=== PATIENT | female | born 2005 | race Caucasian/White ===

== ENCOUNTER 2023-11-13 20:44 | Emergency (ER) | payer MEDICAID, SELFPAY ==
[2023-11-13 20:46] VITALS: BP 130/73; PULSE 127; RESP 14; TEMP 36.7; O2SAT 97; BMI 17.7
--- NOTE | 2023-11-13 22:14 | PC.NURSE ---
pt informed we needed to swab her for flu/covid she states she has already been tested and has isolated herself and doesnt want it done. Also told we need a UA and she states she is dehydrated and cannot urinate.
--- NOTE | 2023-11-13 22:19 | ECG_ITS ---
APPROVED REPORT Exam: Resting ECG HR:115 bpm ECG Measurements Heart Rate 115 AXES AK 117 P 86 QRSd 77 QRS 92 QT 342 T -30 QTc 410 Conclusion SINUS TACHYCARDIA WITH SHORT AK INTERVAL RIGHT ATRIAL ENLARGEMENT [0.3mV P-WAVE] BORDERLINE RIGHT AXIS DEVIATION [QRS AXIS > 90] POSSIBLE RIGHT VENTRICULAR CONDUCTION DELAY [RSR (QR) IN V1/V2] MODERATE T-WAVE ABNORMALITY, CONSIDER ANTERIOR ISCHEMIA [-0.1+ mV T-WAVE IN V3/V4] MODERATE T-WAVE ABNORMALITY, CONSIDER INFERIOR ISCHEMIA [-0.1+ mV T-WAVE IN II/aVF] ABNORMAL ECG UNCONFIRMED REPORT Electronically signed by : Stew Shukla MD 11/14/2023 09:00:14
[2023-11-13 22:24] LABS: Basophils # 0.1 K/mm3 (0-0.2); Basophils % 0.5 % (0.1-2.0); Eosinophils # 0.1 K/mm3 (0.0-0.4); Eosinophils % 0.6 % (0.1-12.0); Hematocrit 43.2 % (37.0-47.0); Hemoglobin 15.1 g/dL (12.2-16.2); Lymphocytes # 2.2 K/mm3 (0.7-4.5); Lymphocytes % 23.7 % (10-50); Mean Corpuscular Hemoglobin 32.5 pg (27.0-31.2); Mean Corpuscular Volume 92.7 fl (81-99); Mean Platelet Volume 7.9 fl (7.4-10.4); Monocytes # 0.6 K/mm3 (0.1-1.0); Monocytes % 6.3 % (1.7-9.3); Neutrophils # 6.3 K/mm3 (1.8-7.8); Neutrophils % 68.7 % (37.0-80.0); Platelet Count 294 K/mm3 (142-424); Red Blood Count 4.66 M/mm3 (4.20-5.40); Red Cell Distribution Width 12.6 % (11.5-17.5); White Blood Count 9.2 K/mm3 (4.5-13.0)
[2023-11-13 22:26] LABS: Chloride 102 mmol/L (98-107); Potassium 3.8 mmoL/L (3.5-5.1); Sodium 137 mmol/L (136-145)
[2023-11-13 22:28] LABS: Alanine Aminotransferase 28 U/L (12-78); Alkaline Phosphatase 67 U/L (38-126); Aspartate Amino Transferase 55 U/L (14-36); Bilirubin,Total 0.7 mg/dl (0.2-1.3); Blood Urea Nitrogen 17 mg/dl (7-17); Creatinine Clearance Estimated 77 mL/min (50-200); Estimated Glomerular Filt Rate 71 ml/min (>60); GFR (African American) 86 ML/MIN (>60)
[2023-11-13 22:29] LABS: Albumin Level 5.2 g/dl (3.5-5.0); Albumin/Globulin Ratio 1.3 (1.1-1.8); Anion Gap 24.8 mEq/L (5-15); Calcium 9.6 mg/dl (8.4-10.2); Carbon Dioxide 14 mmol/L (22.0-30.0); Globulin 3.9 g/dL (1.3-3.2); Glucose 105 mg/dl (74-100); HCG Qualitative, Serum Negative (Negative); Lipase 91 U/L (23-300); Total Protein,Serum 9.1 g/dl (6.3-8.2)
[2023-11-13 22:30] VITALS: BP 145/89; PULSE 118; RESP 25; O2SAT 97
--- NOTE | 2023-11-13 22:47 | PC.NURSE ---
changed patient into a gown, lights turned down and TV controller
[2023-11-13 23:00] VITALS: BP 116/73; PULSE 104; RESP 20; O2SAT 97
[2023-11-13 23:30] VITALS: BP 108/66; PULSE 81; RESP 16; O2SAT 97
--- NOTE | 2023-11-13 23:45 | HMH.EDGENADL ---
Discharge Plan Disposition Patient Disposition: Home, Self-Care Condition: Good Prescriptions Prescriptions: New capsaicin 0.1 % cream 1 applic topical BID PRN (Reason: abdominal pain) Qty: 60 0RF Rx Instructions: do not wash area for at least 30 min after application promethazine 25 mg tablet 25 mg PO TID PRN (Reason: nausea and vomiting) Qty: 20 0RF dicyclomine 20 mg tablet 20 mg PO QID PRN (Reason: abdominal pain) Qty: 20 0RF Referrals Follow up/Referrals: Jackson Fierro [Primary Care Provider] - See instructions Activity Restrictions/Add. Instructions Additional Instructions/Restrictions: You were evaluated in the emergency department today. Please follow-up closely with your primary care provider. I recommend close follow-up with gastroenterology for further evaluation and management of your symptoms. Avoid smoking marijuana. Return to the emergency department for any new or worsening symptoms. supervisor wood room your prescription and use them as needed for symptoms. Make sure that you are staying hydrated. Clinical Impressions Clinical Impression: Cyclic vomiting syndrome, Dehydration Instructions Patient Instructions: DI for Diarrhea and Traveler's Diarrhea -- Adult, DI for Nausea -- Adult Discharge ED Provider: Starr Jorge General Adult HPI <Starr Jorge DO - Last Filed: 11/14/23 00:28> General Chief complaint: Nausea/Vomiting/Diarrhea Stated complaint: vomitting, fever Time Seen by Provider: 11/13/23 22:01 Mode of Arrival: Wheelchair Source of Information: Patient Limitations: No Limitations Description of Symptoms (Recalled from ER Triage Doc. by RN): Patient in wheelchair to ED. Compains of constant diarrhea, and vomiting x 3 days. Unable to tolerate anything PO. Generalized weakness and lethargy stated. History of Present Illness HPI narrative: This patient is a 18-year-old female presenting to the emergency department for evaluation with concern for intractable nausea, vomiting, and diarrhea for 3 days. She states she is unable to keep anything down and feels dehydrated. Given this, she is generally weak. She does that she has had issues like this ongoing for approximately 2 years, and she has been seen multiple times and had multiple CT scans as well as an EGD and has been told that they have not found anything abnormal. She does note that she smokes marijuana, but she denies ever being told this could be related or that she may have cyclic vomiting syndrome. She complains of generalized abdominal pain and cramping with vomiting, but no pain at rest. No localized pain. No other symptoms, such as fevers, dysuria, or other issues. She took Zofran and Phenergan at home without good improvement in her symptoms. Related Data Previous Rx's Medication Instructions Recorded capsaicin 0.1 % topical cream 1 applic topical BID PRN abdominal 11/13/23 pain #60 grams dicyclomine 20 mg tablet 20 mg PO QID PRN abdominal pain 11/13/23 #20 tabs promethazine 25 mg tablet 25 mg PO TID PRN nausea and 11/13/23 vomiting #20 tabs Allergies Allergy/AdvReac Type Severity Reaction Status Date / Time No Known Allergies Allergy Verified 11/13/23 22:05 [facility] <Starr Jorge DO - Last Filed: 11/14/23 00:28> [facility] Disclaimer: The information contained in this section may have been updated after the patient was seen, as this information can be updated by other users. Social History Smoking Status: Current every day smoker alcohol intake: current current occupational status: employed Travel in the last 8 weeks: None <Starr Jorge DO - Last Filed: 11/14/23 00:28> ROS Obtained: Yes All systems reviewed & no additional complaints except as documented Physical Exam <Starr Jorge DO - Last Filed: 11/14/23 00:28> General General appearance: alert, in no apparent distress and anxious Head Head exam: atraumatic and normocepha
[2023-11-14] VITALS: BP 116/75; PULSE 75; RESP 16; O2SAT 97
[2023-11-14 00:47] VITALS: BP 122/74; PULSE 77; RESP 18; TEMP 36.7
== END 2023-11-14 00:53 | disposition home or self-care (01) ==
PROVIDERS: Emergency Provider Emergency Medicine; PCP Pediatrics
DX: R11.10 Vomiting, unspecified (principal); E86.0 Dehydration; R19.7 Diarrhea, unspecified; F17.200 Nicotine dependence, unspecified, uncomplicated; R53.1 Weakness; R00.0 Tachycardia, unspecified
CPT/HCPCS: 80053; 83690; 84703; 85025; 93005; 96361; 96374; 99285; J1790

== ENCOUNTER 2024-06-05 10:16 | Emergency (ER) | payer MEDICAID, SELFPAY ==
[2024-06-05 10:25] VITALS: BP 168/94; PULSE 82; RESP 20; TEMP 36.6; O2SAT 98; BMI 17.7
--- NOTE | 2024-06-05 10:47 | EXP.UTC ---
Discharge Plan Disposition Patient Disposition: Home, Self-Care Condition: Good Prescriptions Prescriptions: New albuterol sulfate [Ventolin HFA] 90 mcg/actuation HFA aerosol inhaler 2 puff inhalation Q6H PRN (Reason: shortness of breath or wheezing) Qty: 6.7 0RF ondansetron 4 mg Tablet,Disintegrating 4 mg PO Q8H PRN (Reason: Nausea) Qty: 12 0RF No Action buspirone 10 mg tablet 10 mg PO BID Patient Comments: TAKE 1 TABLET BY MOUTH TWICE DAILY levonorgest-eth.estradiol-iron 0.1 mg-0.02 mg (21)/iron (7) tablet 1 tab PO DAILY Referrals Follow up/Referrals: Jackson Fierro [Primary Care Provider] - See instructions Activity Restrictions/Add. Instructions Additional Instructions/Restrictions: Take the medications as directed. Follow up with your regular doctor. GO TO THE ER FOR ANY WORSENING SYMPTOMS Clinical Impressions Clinical Impression: Asthma Instructions Patient Instructions: Asthma -- Adult, DI for Asthma -- Adult, Ondansetron, Albuterol Discharge ED Provider: Juan Nassar [facility] General Stated complaint: soa Mode of Arrival: Ambulatory Source of Information: Patient Limitations: No Limitations Time Seen by Provider: 06/05/24 10:34 Description of Symptoms (Recalled from Triage Doc. by RN): PATIENT C/O SOA, REQUESTING A BREATHING TREATMENT HEENT Symptoms (Recalled from RN notes): No Resp Symptoms (Recalled from RN notes): Yes Skin Symptoms (Recalled from RN notes): No MS Symptoms (Recalled from RN notes): No Functional Status (Recalled from RN notes): WNL History of Present Illness Provider Complaint: She states that she has a history of asthma and she is out of her rescue inhaler. She request an albuterol breathing treatment at this time because she has had wheezing since breathing dust this morning. She has an appointment to f/u with her pcp. Related Data Home Medications Medication Instructions Recorded Confirmed buspirone 10 mg tablet 10 mg PO BID 06/05/24 06/05/24 levonorgestrel 0.1 mg-ethinyl 1 tab PO DAILY 06/05/24 06/05/24 estradiol 0.02 mg (21)/iron (7) tablet Previous Rx's Medication Instructions Recorded albuterol sulfate 90 mcg/actuation 2 puff inhalation Q6H PRN 06/05/24 aerosol inhaler (Ventolin HFA) shortness of breath or wheezing #6.7 grams ondansetron 4 mg disintegrating 4 mg PO Q8H PRN Nausea #12 tabs 06/05/24 tablet Allergies Allergy/AdvReac Type Severity Reaction Status Date / Time No Known Allergies Allergy Verified 11/13/23 22:05 Worker's Comp Is this a Worker's Comp case?: No [facility] Disclaimer: The information contained in this section may have been updated after the patient was seen, as this information can be updated by other users. Medical History (Updated 06/05/24 @ 11:17 by Juan Nassar APRN) Asthma Depression Anxiety Social History (Updated 11/14/23 @ 00:28 by Starr Jorge DO) Smoking Status: Current every day smoker alcohol intake: current alcohol intake frequency: a few times a week current occupational status: employed Travel in the last 8 weeks: None ROS Obtained: Yes All systems reviewed & no additional complaints except as documented Constitutional Constitutional: Denies chills and Denies fever(s) Eyes Eyes: Denies eye discharge ENT Ears, Nose, Mouth, and Throat: Denies dizziness, Denies otalgia and Denies sore throat Cardiovascular Cardiovascular: Denies chest pain Respiratory Respiratory: Denies shortness of breath, Denies chest congestion, Denies cough, Denies stridor and Denies wheezing Gastrointestinal Gastrointestingal: Denies nausea or vomiting Musculoskeletal Musculoskeletal: Reports system reviewed and no additional complaints, except as documented and Denies arthralgias Integumentary/Breasts Skin/Breast: Denies rash Neurologic Neurologic: Denies dizziness and Denies paresthesias Allergic/Immunologic Allergic/Immunologic: Denies wheezing Physical Exam General General appearance: alert and in no apparent distress Head Head exam: atraumatic, normocephalic and normal inspection Eye Eye exam: Present normal appearance, PERRL and EOMI ENT ENT exam: Present normal exam, normal oropharynx, mucous membranes moist, TM's normal bilaterally and normal external ear exam Neck Neck exam: Present normal inspection, full ROM and trachea midline; Absent meningismus or lymphadenopathy Chest Chest inspection: Present normal inspection and symmetric chest wall rise; Absent tenderness Respiratory Respiratory exam: Present normal lung sounds bilaterally; Absent respiratory distress Cardiovascular Cardiovascular exam: Present regular rate and normal rhythm; Absent JVD Abdominal Exam Abdominal exam: Present soft and normal bowel sounds; Absent distention, tenderness or guarding Extremities Exam Extremities exam: Present normal inspection, full ROM and normal capillary refill; Absent calf tenderness Back Exam Back exam: Present normal inspection; Absent tenderness Neurological Exam Neurological exam: Present alert and oriented X3 Psychiatric Psychiatric exam: Present normal affect and normal mood Skin Skin exam: Present warm, dry, intact and normal color Lymphatic Lymphatic Findings: no adenopathy Medical Decision Making Medical Records Medical records reviewed: No I reviewed the patient's medical records. Waldemar Inquiry Pt receiving controlled substance: No Vital Signs: 06/05/24 10:25 Temperature 97.9 F Temperature Source Oral Pulse Rate [Left Brachial] 82 Respiratory Rate 20 Blood Pressure [Left Arm] 168/94 H Blood Pressure Mean [Left Arm] 118 Blood Pressure Source [Left Arm] Automatic Cuff Blood Pressure Position [Left Arm] Sitting 02 Sat by Pulse Oximetry 98 Oxygen Delivery Method Room Air
[2024-06-05] MEDS: ONDANSETRON 4MG ODT 4 MG SL (10:54)
[2024-06-05] MEDS: IPRATROPIUM/ALBUTEROL 3 ML NEB IH (10:54)
[2024-06-05 11:18] VITALS: BP 168/94; PULSE 82; RESP 20; TEMP 36.6; O2SAT 98
== END 2024-06-05 11:22 | disposition home or self-care (01) ==
PROVIDERS: Emergency Provider Nurse Practitioner Family; PCP Pediatrics
DX: J45.909 Unspecified asthma, uncomplicated (principal)
CPT/HCPCS: 99204; 99212; G0463; J7620

== ENCOUNTER 2024-06-17 23:07 | Emergency (ER) | payer MEDICAID, SELFPAY ==
[2024-06-17 23:09] VITALS: BP 152/98; PULSE 122; RESP 18; TEMP 36.9; O2SAT 100; BMI 17.2
--- NOTE | 2024-06-17 23:33 | ECG_ITS ---
APPROVED REPORT Exam: Resting ECG HR:104 bpm ECG Measurements Heart Rate 104 AXES OK 128 P 86 QRSd 74 QRS 88 QT 335 T 60 QTc 396 Conclusion SINUS TACHYCARDIA POSSIBLE RIGHT ATRIAL ENLARGEMENT [0.25mV P-WAVE] POSSIBLE RIGHT VENTRICULAR CONDUCTION DELAY [RSR (QR) IN V1/V2] ABNORMAL ECG UNCONFIRMED REPORT Electronically signed by : REBEKA COBOS, 06/20/2024 06:47:34
--- NOTE | 2024-06-17 23:35 | HMH.EDGENADL ---
Discharge Plan Disposition Patient Disposition: Home, Self-Care Prescriptions Prescriptions: New ondansetron HCl 4 mg tablet 4 mg PO Q8H PRN (Reason: nausea and vomiting) 5 Days Qty: 30 0RF No Action buspirone 10 mg tablet 10 mg PO BID Patient Comments: TAKE 1 TABLET BY MOUTH TWICE DAILY levonorgest-eth.estradiol-iron 0.1 mg-0.02 mg (21)/iron (7) tablet 1 tab PO DAILY albuterol sulfate [Ventolin HFA] 90 mcg/actuation HFA aerosol inhaler 2 puff inhalation Q6H PRN (Reason: shortness of breath or wheezing) Qty: 6.7 0RF ondansetron 4 mg Tablet,Disintegrating 4 mg PO Q8H PRN (Reason: Nausea) Qty: 12 0RF Referrals Follow up/Referrals: Jackson Fierro [Primary Care Provider] - See instructions Activity Restrictions/Add. Instructions Additional Instructions/Restrictions: Please follow-up with your primary care provider. Consider establishing care with one of our [employer] REPAIR[employer]'s. Please return to the emergency department if you develop any new or worsening symptoms or become concerned for your health. Clinical Impressions Clinical Impression: Nausea Abdominal pain Qualifiers: Abdominal location: lower abdomen, unspecified Qualified Code(s): R10.30 - Lower abdominal pain, unspecified Instructions Patient Instructions: DI for Acute Abdominal Pain Print Language Print Language: Mauritian Discharge ED Provider: Darnell Greenwood General Adult HPI General Chief complaint: Abdominal Pain Stated complaint: pain in abd, vomiting Time Seen by Provider: 06/17/24 23:10 History of Present Illness HPI narrative: 19-year-old female with history of asthma, anxiety, chronic difficulties with eating, daily marijuana use, intermittent alcohol use presents for multiple complaints. She reports that she smoked weed in the parking lot prior to coming in. On initial discussion patient is very anxious appearing. The primary symptom she is coming in for tonight is low-level intermittent dark blood per vagina last couple of weeks in conjunction with a missed period. She reports that her test at home was negative. She was previously on oral contraceptive pills but was off it for couple months and just went back on it this month. She reports that she has had intermittent lower abdominal pain for the last couple of days. Reports it is bilateral in nature. Reports no urinary symptoms such as burning, urgency, frequency etc. She reports that she has had regular bowel movements. She reports that she has had ovarian cysts in the past. She currently does not have any abdominal pain. Related Data Home Medications ?Medication ?Instructions ?Recorded ?Confirmed buspirone 10 mg tablet 10 mg PO BID 06/05/24 06/05/24 levonorgestrel 0.1 mg-ethinyl 1 tab PO DAILY 06/05/24 06/05/24 estradiol 0.02 mg (21)/iron (7) tablet Previous Rx's ?Medication ?Instructions ?Recorded albuterol sulfate 90 mcg/actuation 2 puff inhalation Q6H PRN 06/05/24 aerosol inhaler (Ventolin HFA) shortness of breath or wheezing #6.7 grams ondansetron 4 mg disintegrating 4 mg PO Q8H PRN Nausea #12 tabs 06/05/24 tablet ondansetron HCl 4 mg tablet 4 mg PO Q8H PRN nausea and 06/18/24 vomiting 5 days #30 tabs Allergies Allergy/AdvReac Type Severity Reaction Status Date / Time No Known Allergies Allergy Verified 11/13/23 22:05 [facility] Disclaimer: The information contained in this section may have been updated after the patient was seen, as this information can be updated by other users. Medical History (Updated 06/18/24 @ 01:22 by Darnell Greenwood MD) Asthma Depression Anxiety Social History (Updated 11/14/23 @ 00:28 by Starr Jorge DO) Smoking Status: Current every day smoker alcohol intake: current alcohol intake frequency: a few times a week current occupational status: employed Travel in the last 8 weeks: None ROS Obtained: Yes All systems reviewed & no additional complaints except as documented Physical Exam General General appearance: alert and anxious Head Head exam: atraumatic and normocephalic Eye Eye exam: Present PERRL, EOMI and conjunctival redness ENT ENT exam: Present normal oropharynx and normal external ear exam Neck Neck exam: Present normal inspection and full ROM Chest Chest inspection: Present normal inspection and symmetric chest wall rise; Absent tenderness Respiratory Respiratory exam: Present normal lung sounds bilaterally; Absent respiratory distress Cardiovascular Cardiovascular exam: Present normal rhythm and tachycardia Abdominal Exam Abdominal exam: Present soft; Absent distention, tenderness or guarding Extremities Exam Extremities exam: Present normal inspection; Absent edema or joint swelling Back Exam Back exam: Present normal inspection; Absent tenderness Neurological Exam Neurological exam: Present alert and oriented X3; Absent motor sensory deficit Psychiatric Psychiatric exam: Present anxious Skin Skin exam: Present warm, dry and normal color Lymphatic Lymphatic Findings: no adenopathy Medical Decision Making Medical Records Medical records reviewed: Yes I reviewed the patient's medical records. Waldemar Inquiry Pt receiving controlled substance: No Waldemar was queried for this patient: No Vital Signs: 06/17/24 23:09 06/18/24 01:32 Temperature 98.5 F 98.2 F Temperature Source Oral Pulse Rate 76 Pulse Rate [Left Radial] 122 H Respiratory Rate 18 12 Blood Pressure 129/86 Blood Pressure [Right Arm] 152/98 H Blood Pressure Mean [Right Arm] 116 Blood Pressure Source Automatic Cuff Blood Pressure Source [Right Arm] Automatic Cuff Blood Pressure Position Sitting Blood Pressure Position [Right Arm] Sitting 02 Sat by Pulse Oximetry 100 Oxygen Delivery Method Room Air Lab Data Lab results reviewed: Yes I reviewed the patient's lab results. Lab Results 06/18/24 00:21: Urine Color Yellow, Urine Appearance Clear, Urine pH 6.0, Ur Specific [place] >= 1.030, Urine Protein Negative, Urine Glucose (UA) Negative, Urine Ketones 1+, Urine Blood 2+, Urine Nitrate Negative, Urine Bilirubin Negative, Urine Urobilinogen 0.2, Ur Leukocyte Esterase Trace, Urine RBC 3-5, Urine WBC 3-5, Ur Squamous Epith Cells 5-10, Urine Bacteria 2+, Urine Mucus 2+, Urine HCG, Qual Negative Orders (Tests/Meds): ORDERS Category Date Time Status UA [Urinalysis and Microscopic] Stat Lab 06/18/24 00:21 Completed Urine , HCG Qual. Stat Lab 06/17/24 23:33 Completed Urine Culture Stat Micro 06/18/24 00:21 Received ECG Data Tracing #1: I reviewed this ECG and interpreted as documented below: Sinus tachycardia without evidence of arrhythmia or ischemia. ECG initial impression date: 06/17/24 ECG initial impression time: 23:35 Arrhythmias present: sinus tach Medical Decision Narrative: 19-year-old female with history of asthma, anxiety, daily marijuana use (including in the parking lot before walking in), intermittent alcohol use, chronic upper abdominal pain and difficulty eating presents for a few weeks of intermittent vaginal spotting after restarting her OCPs and a couple of days of intermittent lower abdominal pain. Currently patient has no abdominal pain or tenderness on exam.. History was obtained via interactive discussion with patient. On initial evaluation patient is fairly tachycardic with a labile heart rate. She reports this is normal for her when she goes to the hospital because she gets extremely anxious. EKG shows sinus tachycardia. Patient's tachycardia resolved after he left the room. Differential includes but is not limited to , ectopic , UTI, STI, constipation, ovarian cyst, mittelschmerz, appendicitis, enteritis, ovarian torsion. Workup initiated including urinalysis, urine , gonorrhea chlamydia. I considered ordering blood work and CT imaging, but patient declined these assessments. Given she currently has no pain or tenderness on exam, I think the risk of a surgical emergency is quite low at this time. On re-evaluation, patient [remains afebrile, HD stable.] Continues to be symptom-free at this time. She reports that she does not want blood work or CT imaging at this time. Laboratory workup independently interpreted by me and significant for likely contaminated urine specimen that does not appear consistent with acute infection, especially given patient is not having any urinary symptoms.. Negative test. I had an interactive discussion with patient regarding presentation. Low concern for emergent pathology at this time. She was discharged in stable condition with return precautions. Discharged with prescription for Zofran. Procedures Risk/Benefits of Procedure(s) Were Explained: Yes Critical Care Critical Care Time Critical Care Time: No
--- NOTE | 2024-06-17 23:42 | PC.NURSE ---
pt refused IV and labs, aware. Pt unable to give urine specimen at this time.
[2024-06-18 00:24] LABS: Microscopic, Urine URINE MICROSCOPIC (MICROSCOPIC)
[2024-06-18 00:26] LABS: Appearance,Urine CLEAR (Clear); Blood, Urine 2+ (Negative); Color,Urine YELLOW (Yellow); Glucose,Urine (UA) Negative (Negative); Ketones,Urine 1+ (Negative); Leukocyte Esterase,Urine TRACE (Negative); Nitrate,Urine Negative (Negative); Protein,Urine Negative (Negative); Specific Gravity, Urine >= 1.030 (1.005-1.030); Urobilinogen,Urine 0.2 EU/dl (0.2)
[2024-06-18 00:27] LABS: Urine Pregnancy, HCG Qual. Negative (Negative)
[2024-06-18 00:28] LABS: Bilirubin,Urine Negative (Negative)
[2024-06-18 00:37] LABS: Bacteria,Urine 2+ /lpf; Mucus,Urine 2+ /lpf
[2024-06-18 01:32] VITALS: BP 129/86; PULSE 76; RESP 12; TEMP 36.8; O2SAT 96
[2024-06-19 21:16] LABS: Neisseria gonorrhoeae, NAA Negative (Negative)
== END 2024-06-18 01:35 | disposition home or self-care (01) ==
PROVIDERS: Emergency Provider Emergency Medicine; PCP Pediatrics
DX: R10.30 Lower abdominal pain, unspecified (principal); R00.0 Tachycardia, unspecified; R11.0 Nausea; B96.89 Other specified bacterial agents as the cause of diseases classified elsewhere; F17.210 Nicotine dependence, cigarettes, uncomplicated
CPT/HCPCS: 81001; 81025; 87086; 87491; 87591; 93005; 99283

== ENCOUNTER 2025-01-02 12:48 | Emergency (ER) | payer MEDICAID, SELFPAY ==
[2025-01-02 12:50] VITALS: BP 163/85; PULSE 81; RESP 16; TEMP 36.7; O2SAT 99; BMI 15.6
--- NOTE | 2025-01-02 13:06 | PC.NURSE ---
Domi [employer] at bedside
--- NOTE | 2025-01-02 13:07 | CT_ITS ---
FINAL REPORT TECHNIQUE: IV contrast enhanced exam This study was performed with techniques to keep radiation doses as low as reasonably achievable, (ALARA). Individualized dose reduction techniques using automated exposure control or adjustment of mA and/or kV according to the patient's size were employed. CLINICAL HISTORY: abd pain COMPARISON: None FINDINGS: CT ABDOMEN PELVIS WITH CONTRAST: Abdomen: Lung bases are clear. The gallbladder is unremarkable. Liver has an unremarkable CT appearance. The spleen, pancreas and adrenal glands are unremarkable. Kidneys show no mass or obstruction. No bowel obstruction or fluid collection is seen. Pelvis: The appendix is not visualized. There are no secondary signs to suggest appendicitis. Pelvic bowel loops are unremarkable. No fluid collection or adenopathy is seen. The uterus and ovaries are normal. The bladder is unremarkable in appearance. IMPRESSION: No acute findings. Reviewed, Interpreted and Dictated by Alice Kidd MD Transcribed by Iliana Oates Authenticated and [facility]
--- NOTE | 2025-01-02 13:07 | ED_ITS ---
Discharge Plan Disposition Patient Disposition: Home, Self-Care Condition: Good Prescriptions Prescriptions: New ondansetron 4 mg tablet,disintegrating 4 mg PO DAILY 3 Days Qty: 3 0RF No Action buspirone 10 mg tablet 10 mg PO BID Patient Comments: TAKE 1 TABLET BY MOUTH TWICE DAILY levonorgest-eth.estradiol-iron 0.1 mg-0.02 mg (21)/iron (7) tablet 1 tab PO DAILY Referrals Follow up/Referrals: Jackson Fierro [Primary Care Provider] - See instructions Activity Restrictions/Add. Instructions Additional Instructions/Restrictions: Increase your fluid intake. Rest. Follow-up with your PCP within 7 days. Return to the ED for worsening of condition. Clinical Impressions Clinical Impression: Nausea Abdominal pain Qualifiers: Abdominal location: lower abdomen, unspecified Qualified Code(s): R10.30 - Lower abdominal pain, unspecified Stand Alone Forms Stand Alone Forms: Work/School Release Instructions Patient Instructions: DI for Acute Abdominal Pain Print Language Print Language: Kazakh Discharge ED Provider: Jayson Rodriguez General Adult HPI <Minerva Stallings APRN - Last Filed: 01/02/25 14:26> General Chief complaint: Abdominal Pain Stated complaint: abd pain, nausea Time Seen by Provider: 01/02/25 13:00 Mode of Arrival: Ambulatory Source of Information: Patient Limitations: No Limitations Description of Symptoms (Recalled from ER Triage Doc. by RN): Abdoimnal pain and nausea x2 days. Endorses one episode of vomiting last night, and once an hour a ago. Patient states her pain is generalized throughout her abdomen, and also into her lower ribs. States, It hurts when I try to get out of bed or bed over. Denies fevers. States her last bowel movement was last night. Denies blood in stool or vomitus. Last menstrual period about 3 weeks ago. Patient states she is unsure if she is . Patient smiling and interactive with staff in triage. History of Present Illness HPI narrative: 19-year-old female presents to the ED for complaints of 2 days of generalized abdominal pain and vomiting. Patient has a history of cyclic vomiting. Patient states today she is concerned that she is as well. Related Data Home Medications ?Medication ?Instructions ?Recorded ?Confirmed buspirone 10 mg tablet 10 mg PO BID 06/05/24 01/02/25 levonorgestrel 0.1 mg-ethinyl 1 tab PO DAILY 06/05/24 01/02/25 estradiol 0.02 mg (21)/iron (7) tablet Previous Rx's ?Medication ?Instructions ?Recorded ondansetron 4 mg disintegrating 4 mg PO DAILY 3 days #3 tabs 01/02/25 tablet Allergies Allergy/AdvReac Type Severity Reaction Status Date / Time No Known Allergies Allergy Verified 01/02/25 12:56 PFS <Minerva Stallings APRN - Last Filed: 01/02/25 14:26> [facility] Disclaimer: The information contained in this section may have been updated after the patient was seen, as this information can be updated by other users. Medical History (Updated 01/02/25 @ 14:22 by Minerva Stallings APRN) Asthma Depression Anxiety Social History (Updated 11/14/23 @ 00:28 by Starr Jorge DO) Smoking Status: Current every day smoker alcohol intake: current alcohol intake frequency: a few times a week current occupational status: employed Travel in the last 8 weeks: None Have you lived/traveled outside US in past 30 days?: No Contact w/someone who lives/traveled outside US past 30 days?: No Exposure to someone with infectious disease in past 14 days?: No Do you have a fever (greater than 100.4 F or 38 C)?: No Have you tested positive for COVID-19: No Exposed to someone with COVID-19 in past 14 days?: No Do you have a sore throat?: No Do you have a cough?: No Do you have any weakness?: No Do you have any diarrhea?: No Are you experiencing any unusual bleeding?: No Do you have any muscle aches/pain?: No Do you have any abdominal pain?: Yes Are you experiencing loss of taste or smell?: No <Minerva Stallings APRN - Last Filed: 01/02/25 14:26> ROS Obtained: Yes Systems reviewed as appropriate & no additional complaints except as documented Physical Exam <Minerva Stallings APRN - Last Filed: 01/02/25 14:26> General General appearance: alert and in no apparent distress Head Head exam: atraumatic and normocephalic Eye Eye exam: Present normal appearance and PERRL ENT ENT exam: Present normal exam Neck Neck exam: Present normal inspection Chest Chest inspection: Present normal inspection and symmetric chest wall rise; Absent tenderness Respiratory Respiratory exam: Present normal lung sounds bilaterally Cardiovascular Cardiovascular exam: Present regular rate Abdominal Exam Abdominal exam: Present soft, tenderness (Generalized) and normal bowel sounds; Absent ascites or mass Extremities Exam Extremities exam: Present normal inspection and full ROM Back Exam Back exam: Present normal inspection and full ROM Neurological Exam Neurological exam: Present alert and oriented X3 Psychiatric Psychiatric exam: Present normal affect and normal mood Skin Skin exam: Present warm and dry Medical Decision Making <Minerva Stallings APRN - Last Filed: 01/02/25 14:26> Medical Records Screening: Per USPSTF and CDC recommendations, given the prevalence of disease in our region, it is our hospital?s policy to screen for HIV and viral Hepatitis for all patients aged 18 and over and those with ongoing risk factors. Waldemar Inquiry Pt receiving controlled substance: No Waldemar was queried for this patient: No Vital Signs: 01/02/25 12:50 01/02/25 13:25 01/02/25 13:30 Temperature 98.1 F Temperature Source Temporal Artery Scan Pulse Rate 79 80 Pulse Rate [Radial] 81 Respiratory Rate 16 Blood Pressure 144/90 H 126/79 Blood Pressure [R Arm] 163/85 H Blood Pressure Mean [R Arm] 111 Blood Pressure Source Blood Pressure Source [R Arm] Automatic Cuff Blood Pressure Position Blood Pressure Position [R Arm] Sitting 02 Sat by Pulse Oximetry 99 99 98 Oxygen Delivery Method Room Air 01/02/25 14:00 01/02/25 14:28 Temperature 98.5 F Temperature Source Oral Pulse Rate 81 68 Pulse Rate [Radial] Respiratory Rate 18 Blood Pressure 128/87 112/78 Blood Pressure [R Arm] Blood Pressure Mean [R Arm] Blood Pressure Source Automatic Cuff Blood Pressure Source [R Arm] Blood Pressure Position Sitting Blood Pressure Position [R Arm] 02 Sat by Pulse Oximetry 98 Oxygen Delivery Method Room Air Lab Data Lab Results 01/02/25 13:00: WBC 8.7, RBC 4.01 L, Hgb 13.3, Hct 36.8 L, MCV 91.8, MCH 33.2 H, MCHC 36.1 H, RDW 12.2, Plt Count 273, MPV 9.9, Neut % (Auto) 44.5, Lymph % (Auto) 43.8, [place] % (Auto) 6.7, Eos % (Auto) 4.4, Baso % (Auto) 0.5, Neut # (Auto) 3.9, Lymph # (Auto) 3.8, [place] # (Auto) 0.6, Eos # (Auto) 0.4, Baso # (Auto) 0.0, Sodium 136, Potassium 3.4 L, Chloride 99, Carbon Dioxide 23, Anion Gap 17.4 H, BUN 10, Creatinine 0.90, Estimated Creat Clear 75, Estimated GFR 79, Est GFR ( Amer) 96, Glucose 108 H, Calcium 10.1, Total Bilirubin 0.5, AST 32, ALT 17, Alkaline Phosphatase 44, Total Protein 7.4, Albumin 4.6, Globulin 2.8, Albumin/Globulin Ratio 1.6, Lipase 83, Urine Color Yellow, Urine Appearance Clear, Urine pH 7.0, Ur Specific [place] 1.015, Urine Protein Negative, Urine Glucose (UA) Negative, Urine Ketones Negative, Urine Blood Negative, Urine Nitrate Negative, Urine Bilirubin Negative, Urine Urobilinogen 0.2, Ur Leukocyte Esterase Negative, Urine RBC None, Urine WBC None, Ur Squamous Epith Cells Occasional, Urine Bacteria Trace, Urine HCG, Qual Negative 01/02/25 13:00 01/02/25 13:00 Orders (Tests/Meds): ED MEDICATIONS Discontinued Medications Generic Name Dose Route Start Last Admin Trade Name Freq PRN Reason Stop Dose Admin Iopamidol 75 ml 01/02/25 13:40 01/02/25 13:41 Iopamidol-370 (76%);100ml Bottle IV 01/02/25 13:41 75 ml ONCE ONE Administration Sodium Chloride 10 ml 01/02/25 13:40 01/02/25 13:41 Sodium Chloride 0.9% 10ml Syr (Rad Only) IV 02/01/25 13:39 10 ml NEEDED PRN Administration Maintain IV Site ORDERS Category Date Time Status CT abdomen pelvis w con Stat Cat Scan 01/02/25 13:07 Completed CBC w/Auto Diff [Complete Blood Count Auto Diff] Stat Lab 01/02/25 13:00 Completed CMP [Comprehensive Metabolic Panel] Stat Lab 01/02/25 13:00 Completed HIV Combo Stat Lab 01/02/25 13:00 Received Hepatitis C Ab Qual. W/ RFX Stat Lab 01/02/25 13:00 Received Lipase Stat Lab 01/02/25 13:00 Completed Urinalysis and Microscopic Stat Lab 01/02/25 13:00 Completed Urine , HCG Qual. Stat Lab 01/02/25 13:00 Completed Medical Decision Narrative: In summary, patient is a 19-year-old female PMHx cyclic vomiting syndrome who presents to the ED for 2 days of abdominal pain and 2 episodes of vomiting. Patient states that her abdominal pain is generalized, does not change with food. She denies any recent trauma, denies any history of abdominal surgeries. Patient states she is concerned that she may be however has not missed her period yet. No change in bowel habits. Upon initial exam, patient is alert, oriented and cooperative. Patient is hemodynamically stable. Physical exam remarkable for generalized abdominal tenderness, worse in the right lower quadrant. Denies fever, chills, headache, posterior neck pain, chest pain, shortness of breath, dysuria, flank pain, diarrhea. Differential diagnosis includes appendicitis, cholecystitis, constipation, SBO, diverticulosis, diverticulitis, UTI, pyelonephritis, among others. Initial workup will be conducted with hematologic labs, CT of the abdomen and pelvis with contrast. Initial inventions include Zofran IV for nausea. Initial workup reviewed by me. Hematologic labs remarkable for CBC unremarkable for any leukocytosis, stable H&H. CMP unremarkable for any actionable abnormalities. Lipase 83. Urinalysis unremarkable for any infectious process. test negative. I considered additional testing but deferred due to unremarkable lab work, I do not feel we need to proceed with additional imaging or labs. Formal read of the CT abdomen pelvis unremarkable for any acute process. Upon repeat evaluation, patient had an acceptable resolution of symptoms. They were ambulatory in the ED. Able to tolerate p.o. Social determinant of health noted as patient does not have a vehicle and has difficulty obtaining rides to appointments. Given this, patient is appropriate for discharge home at this time. She was discharged with a prescription for Zofran, we discussed use. Patient states she will follow-up with her PCP in [place]. We discussed return precautions to the ED. Patient verbalized understanding. <Jayson Rodriguez MD - Last Filed: 01/02/25 14:54> Vital Signs: 01/02/25 12:50 01/02/25 13:25 01/02/25 13:30 Temperature 98.1 F Temperature Source Temporal Artery Scan Pulse Rate 79 80 Pulse Rate [Radial] 81 Respiratory Rate 16 Blood Pressure 144/90 H 126/79 Blood Pressure [R Arm] 163/85 H Blood Pressure Mean [R Arm] 111 Blood Pressure Source Blood Pressure Source [R Arm] Automatic Cuff Blood Pressure Position Blood Pressure Position [R Arm] Sitting 02 Sat by Pulse Oximetry 99 99 98 Oxygen Delivery Method Room Air 01/02/25 14:00 01/02/25 14:28 Temperature 98.5 F Temperature Source Oral Pulse Rate 81 68 Pulse Rate [Radial] Respiratory Rate 18 Blood Pressure 128/87 112/78 Blood Pressure [R Arm] Blood Pressure Mean [R Arm] Blood Pressure Source Automatic Cuff Blood Pressure Source [R Arm] Blood Pressure Position Sitting Blood Pressure Position [R Arm] 02 Sat by Pulse Oximetry 98 Oxygen Delivery Method Room Air Lab Data Lab Results 01/02/25 13:00: WBC 8.7, RBC 4.01 L, Hgb 13.3, Hct 36.8 L, MCV 91.8, MCH 33.2 H, MCHC 36.1 H, RDW 12.2, Plt Count 273, MPV 9.9, Neut % (Auto) 44.5, Lymph % (Auto) 43.8, [place] % (Auto) 6.7, Eos % (Auto) 4.4, Baso % (Auto) 0.5, Neut # (Auto) 3.9, Lymph # (Auto) 3.8, [place] # (Auto) 0.6, Eos # (Auto) 0.4, Baso # (Auto) 0.0, Sodium 136, Potassium 3.4 L, Chloride 99, Carbon Dioxide 23, Anion Gap 17.4 H, BUN 10, Creatinine 0.90, Estimated Creat Clear 75, Estimated GFR 79, Est GFR ( Amer) 96, Glucose 108 H, Calcium 10.1, Total Bilirubin 0.5, AST 32, ALT 17, Alkaline Phosphatase 44, Total Protein 7.4, Albumin 4.6, Globulin 2.8, Albumin/Globulin Ratio 1.6, Lipase 83, Urine Color Yellow, Urine Appearance Clear, Urine pH 7.0, Ur Specific [place] 1.015, Urine Protein Negative, Urine Glucose (UA) Negative, Urine Ketones Negative, Urine Blood Negative, Urine Nitrate Negative, Urine Bilirubin Negative, Urine Urobilinogen 0.2, Ur Leukocyte Esterase Negative, Urine RBC None, Urine WBC None, Ur Squamous Epith Cells Occasional, Urine Bacteria Trace, Urine HCG, Qual Negative Orders (Tests/Meds): ED MEDICATIONS Discontinued Medications Generic Name Dose Route Start Last Admin Trade Name Ramirez PRN Reason Stop Dose Admin Iopamidol 75 ml 01/02/25 13:40 01/02/25 13:41 Iopamidol-370 (76%);100ml Bottle IV 01/02/25 13:41 75 ml ONCE ONE Administration Sodium Chloride 10 ml 01/02/25 13:40 01/02/25 13:41 Sodium Chloride 0.9% 10ml Syr (Rad Only) IV 02/01/25 13:39 10 ml NEEDED PRN Administration Maintain IV Site ORDERS Category Date Time Status CT abdomen pelvis w con Stat Cat Scan 01/02/25 13:07 Completed CBC w/Auto Diff [Complete Blood Count Auto Diff] Stat Lab 01/02/25 13:00 Completed CMP [Comprehensive Metabolic Panel] Stat Lab 01/02/25 13:00 Completed HIV Combo Stat Lab 01/02/25 13:00 Received Hepatitis C Ab Qual. W/ RFX Stat Lab 01/02/25 13:00 Received Lipase Stat Lab 01/02/25 13:00 Completed Urinalysis and Microscopic Stat Lab 01/02/25 13:00 Completed Urine , HCG Qual. Stat Lab 01/02/25 13:00 Completed Medical Decision Narrative: In summary, patient is a 19-year-old female PMHx cyclic vomiting syndrome who presents to the ED for 2 days of abdominal pain and 2 episodes of vomiting. Patient states that her abdominal pain is generalized, does not change with food. She denies any recent trauma, denies any history of abdominal surgeries. Patient states she is concerned that she may be however has not missed her period yet. No change in bowel habits. Upon initial exam, patient is alert, oriented and cooperative. Patient is hemodynamically stable. Physical exam remarkable for generalized abdominal tenderness, worse in the right lower quadrant. Denies fever, chills, headache, posterior neck pain, chest pain, shortness of breath, dysuria, flank pain, diarrhea. Differential diagnosis includes appendicitis, cholecystitis, constipation, SBO, diverticulosis, diverticulitis, UTI, pyelonephritis, among others. Initial workup will be conducted with hematologic labs, CT of the abdomen and pelvis with contrast. Initial inventions include Zofran IV for nausea. Initial workup reviewed by me. Hematologic labs remarkable for CBC unremarkable for any leukocytosis, stable H&H. CMP unremarkable for any actionable abnormalities. Lipase 83. Urinalysis unremarkable for any infectious process. test negative. I considered additional testing but deferred due to unremarkable lab work, I do not feel we need to proceed with additional imaging or labs. Formal read of the CT abdomen pelvis unremarkable for any acute process. Upon repeat evaluation, patient had an acceptable resolution of symptoms. They were ambulatory in the ED. Able to tolerate p.o. Social determinant of health noted as patient does not have a vehicle and has difficulty obtaining rides to appointments. Given this, patient is appropriate for discharge home at this time. She was discharged with a prescription for Zofran, we discussed use. Patient states she will follow-up with her PCP in [place]. We discussed return precautions to the ED. Patient verbalized understanding. I was consulted by the DINA, and we discussed the complexity of the problems being addressed. I approved the treatment and management plan for this patient's care in the emergency department, thus performing a substantive portion of the medical decision making. Jayson Rodriguez MD Critical Care <Minerva Stallings APRN - Last Filed: 01/02/25 14:26> Critical Care Time Critical Care Time: No
[2025-01-02 13:09] LABS: Microscopic, Urine URINE MICROSCOPIC (MICROSCOPIC)
[2025-01-02 13:10] LABS: Appearance,Urine CLEAR (Clear); Bilirubin,Urine Negative (Negative); Blood, Urine Negative (Negative); Color,Urine YELLOW (Yellow); Glucose,Urine (UA) Negative (Negative); Ketones,Urine Negative (Negative); Leukocyte Esterase,Urine Negative (Negative); Nitrate,Urine Negative (Negative); Protein,Urine Negative (Negative); Specific Gravity, Urine 1.015 (1.005-1.030); Urobilinogen,Urine 0.2 EU/dl (0.2)
--- NOTE | 2025-01-02 13:10 | PC.NURSE ---
Ice applied to patient's right arm to help numb area for IV insertion
[2025-01-02 13:15] LABS: Urine Pregnancy, HCG Qual. Negative (Negative)
[2025-01-02 13:24] LABS: Bacteria,Urine Trace /lpf; Squamous Epithelial Cell,Urine Occasional #/hpf (0-5)
[2025-01-02 13:25] VITALS: BP 144/90; PULSE 79; O2SAT 99
[2025-01-02 13:28] LABS: Basophils % 0.5 % (0.1-2.0); Eosinophils # 0.4 K/mm3 (0.0-0.4); Eosinophils % 4.4 % (0.1-12.0); Hematocrit 36.8 % (37.0-47.0); Hemoglobin 13.3 g/dL (12.2-16.2); Lymphocytes # 3.8 K/mm3 (0.7-4.5); Lymphocytes % 43.8 % (10-50); Mean Corpuscular HGB Conc 36.1 g/dL (31.8-35.4); Mean Corpuscular Hemoglobin 33.2 pg (27.0-31.2); Mean Corpuscular Volume 91.8 fl (81-99); Mean Platelet Volume 9.9 fl (7.4-10.4); Monocytes # 0.6 K/mm3 (0.1-1.0); Monocytes % 6.7 % (1.7-9.3); Neutrophils # 3.9 K/mm3 (1.8-7.8); Neutrophils % 44.5 % (37.0-80.0); Platelet Count 273 K/mm3 (142-424); Red Blood Count 4.01 M/mm3 (4.20-5.40); Red Cell Distribution Width 12.2 % (11.5-17.5); White Blood Count 8.7 K/mm3 (4.8-10.8)
[2025-01-02 13:30] VITALS: BP 126/79; PULSE 80; O2SAT 98
[2025-01-02] MEDS: IOPAMIDOL-370 (76%);100ML BOTTLE 75 ML IV (13:41)
[2025-01-02] MEDS: SODIUM CHLORIDE 0.9% 10ML SYR (RAD ONLY) 10 ML IV (13:41)
[2025-01-02 13:48] LABS: Alanine Aminotransferase 17 U/L (12-78); Albumin Level 4.6 g/dl (3.5-5.0); Albumin/Globulin Ratio 1.6 (1.1-1.8); Alkaline Phosphatase 44 U/L (38-126); Anion Gap 17.4 mEq/L (5-15); Aspartate Amino Transferase 32 U/L (14-36); Bilirubin,Total 0.5 mg/dl (0.2-1.3); Blood Urea Nitrogen 10 mg/dl (7-17); Calcium 10.1 mg/dl (8.4-10.2); Carbon Dioxide 23 mmol/L (22.0-30.0); Chloride 99 mmol/L (98-107); Creatinine Clearance Estimated 75 mL/min (50-200); Estimated Glomerular Filt Rate 79 ml/min (>60); GFR (African American) 96 ML/MIN (>60); Globulin 2.8 g/dL (1.3-3.2); Glucose 108 mg/dl (74-100); Lipase 83 U/L (23-300); Potassium 3.4 mmoL/L (3.5-5.1); Sodium 136 mmol/L (136-145); Total Protein,Serum 7.4 g/dl (6.3-8.2)
[2025-01-02 14:00] VITALS: BP 128/87; PULSE 81; O2SAT 98
[2025-01-02 14:28] VITALS: BP 112/78; PULSE 68; RESP 18; TEMP 36.9; O2SAT 98
[2025-01-02 15:10] LABS: HIV Combo NEGATIVE (Negative)
[2025-01-02 15:17] LABS: Hepatitis C Ab Qual. W/ RFX NEGATIVE (Negative)
== END 2025-01-02 14:30 | disposition home or self-care (01) ==
PROVIDERS: Nurse Practitioner; Emergency Provider Emergency Medicine; PCP Pediatrics
DX: R10.84 Generalized abdominal pain (principal); R11.2 Nausea with vomiting, unspecified; Z72.0 Tobacco use
CPT/HCPCS: 74177; 80053; 81001; 81025; 83690; 85025; 86803; 87389; 99285; Q9967

== ENCOUNTER 2025-01-29 22:17 | Emergency (ER) | payer MEDICAID, SELFPAY ==
--- NOTE | 2025-01-29 22:20 | PC.NURSE ---
Pt to room 9. Connected to all monitors. +PMS in left lower ext. Pt in no obvious distress
[2025-01-29 22:49] VITALS: BP 138/92; PULSE 99; RESP 13; TEMP 36.9; O2SAT 97; BMI 15.6
[2025-01-29 22:59] VITALS: BP 138/82; PULSE 92; RESP 14; TEMP 36.9
--- NOTE | 2025-01-29 23:11 | XR_ITS ---
PROCEDURE INFORMATION: Exam: XR Right Tibia and Fibula Exam date and time: 01/29/2025 11:14 PM Age: 19 years old Clinical indication: Pain; Lower leg; Right; Additional info: Mid tibia trauma TECHNIQUE: Imaging protocol: Radiologic exam of the right tibia and fibula. Views: 2 views. COMPARISON: No relevant prior studies available. FINDINGS: Bones/joints: The tibia and fibula are intact. No acute fracture. The knee and ankle are normally aligned. Soft tissues: Normal. IMPRESSION: No acute findings.
--- NOTE | 2025-01-29 23:14 | ED_ITS ---
Discharge Plan Disposition Patient Disposition: Home, Self-Care Prescriptions Prescriptions: No Action buspirone 10 mg tablet 10 mg PO BID Patient Comments: TAKE 1 TABLET BY MOUTH TWICE DAILY levonorgest-eth.estradiol-iron 0.1 mg-0.02 mg (21)/iron (7) tablet 1 tab PO DAILY ondansetron 4 mg tablet,disintegrating 4 mg PO DAILY 3 Days Qty: 3 0RF Referrals Follow up/Referrals: Jackson Fierro [Primary Care Provider] - See instructions Activity Restrictions/Add. Instructions Additional Instructions/Restrictions: Please follow-up with your primary care provider. Please return to the emergency department if you develop any new or worsening symptoms or become concerned for your health. Clinical Impressions Clinical Impression: Acute leg pain Qualifiers: Laterality: right Qualified Code(s): M79.604 - Pain in right leg Stand Alone Forms Stand Alone Forms: Work/School Release Print Language Print Language: Indonesian Discharge ED Provider: Darnell Greenwood General Adult HPI General Chief complaint: Extremity Injury, Lower Stated complaint: AO 01/27/25 1730 right leg injury Time Seen by Provider: 01/29/25 22:24 Mode of Arrival: Ambulatory Source of Information: Patient Description of Symptoms (Recalled from ER Triage Doc. by RN): Pt c/o right tib/fib pain since hitting her leg on a plastic basket on Sunday. History of Present Illness HPI narrative: 19-year-old female without past medical history presents for right lower leg pain. She struck her mid lower leg on a hard plastic basket a couple of days ago. She reports that it swelled significantly initially. Reports pain with dorsiflexion of her foot. Reports she was initially unable to walk on it but has been walking on it since then. Reports the swelling is better but the pain remains and she is concerned it could be broken. Related Data Home Medications ?Medication ?Instructions ?Recorded ?Confirmed buspirone 10 mg tablet 10 mg PO BID 06/05/24 01/29/25 levonorgestrel 0.1 mg-ethinyl 1 tab PO DAILY 06/05/24 01/29/25 estradiol 0.02 mg (21)/iron (7) tablet Previous Rx's ?Medication ?Instructions ?Recorded ondansetron 4 mg disintegrating 4 mg PO DAILY 3 days #3 tabs 01/02/25 tablet Allergies Allergy/AdvReac Type Severity Reaction Status Date / Time No Known Allergies Allergy Verified 01/02/25 12:56 [facility] Disclaimer: The information contained in this section may have been updated after the patient was seen, as this information can be updated by other users. Medical History (Updated 01/29/25 @ 23:33 by Darnell Greenwood MD) Asthma Depression Anxiety Social History (Updated 11/14/23 @ 00:28 by Starr Jorge DO) Smoking Status: Current every day smoker alcohol intake: current alcohol intake frequency: a few times a week current occupational status: employed Travel in the last 8 weeks: None Have you lived/traveled outside US in past 30 days?: No Contact w/someone who lives/traveled outside US past 30 days?: No Exposure to someone with infectious disease in past 14 days?: No Do you have a fever (greater than 100.4 F or 38 C)?: No Have you tested positive for COVID-19: No Exposed to someone with COVID-19 in past 14 days?: No Do you have a sore throat?: No Do you have a cough?: No Do you have any weakness?: No Do you have any diarrhea?: No Are you experiencing any unusual bleeding?: No Do you have any muscle aches/pain?: No Do you have any abdominal pain?: No Are you experiencing loss of taste or smell?: No ROS Obtained: Yes All systems reviewed & no additional complaints except as documented Physical Exam General General appearance: alert and in no apparent distress Head Head exam: atraumatic and normocephalic Eye Eye exam: Present normal appearance, PERRL and EOMI ENT ENT exam: Present normal oropharynx and normal external ear exam Neck Neck exam: Present normal inspection and full ROM Chest Chest inspection: Present normal inspection and symmetric chest wall rise; Absent tenderness Respiratory Respiratory exam: Present normal lung sounds bilaterally; Absent respiratory distress Cardiovascular Cardiovascular exam: Present regular rate and normal rhythm Abdominal Exam Abdominal exam: Present soft; Absent distention, tenderness or guarding Extremities Exam Extremities exam: Present tenderness (Bruising and tenderness in the mid anterior tibialis on the right leg. Full range of motion present.); Absent edema or joint swelling Back Exam Back exam: Present normal inspection; Absent tenderness Neurological Exam Neurological exam: Present alert and oriented X3; Absent motor sensory deficit Psychiatric Psychiatric exam: Present normal affect and normal mood Skin Skin exam: Present warm, dry and normal color Lymphatic Lymphatic Findings: no adenopathy Medical Decision Making Medical Records Medical records reviewed: Yes I reviewed the patient's medical records. Screening: Per USPSTF and CDC recommendations, given the prevalence of disease in our region, it is our hospital?s policy to screen for HIV and viral Hepatitis for all patients aged 18 and over and those with ongoing risk factors. Waldemar Inquiry Pt receiving controlled substance: No Waldemar was queried for this patient: No Vital Signs: 01/29/25 22:49 01/29/25 22:59 01/29/25 23:52 Temperature 98.4 F 98.4 F 98.1 F Temperature Source Oral Pulse Rate 92 H 94 H Pulse Rate [Right Radial] 99 H Respiratory Rate 13 14 14 Blood Pressure 138/82 134/75 Blood Pressure [Right Arm] 138/92 H Blood Pressure Mean [Right Arm] 107 Blood Pressure Source Automatic Cuff Blood Pressure Source [Right Arm] Automatic Cuff 02 Sat by Pulse Oximetry 97 Oxygen Delivery Method Room Air Lab Data Lab results reviewed: Yes I reviewed the patient's lab results. Orders (Tests/Meds): ED MEDICATIONS Discontinued Medications Generic Name Dose Route Start Last Admin Trade Name Freq PRN Reason Stop Dose Admin Calcium Carbonate 500 mg 01/29/25 23:35 01/29/25 23:43 Calcium Carbonate 500mg Chewtab PO 01/29/25 23:36 500 mg ONCE ONE Administration ORDERS Category Date Time Status Fibula/tibia XR right 2 views [XR tibia fibula RT 2V] Exams 01/29/25 23:11 Completed Stat Medical Decision Narrative: 19-year-old female without significant past medical history presents for right lower leg pain. History was obtained via interactive discussion with patient. On arrival, patient is [afebrile, hemodynamically stable, satting appropriately, alert, oriented x4, GCS 15], moving all extremities spontaneously. Full physical exam performed and significant for mild bruising and tenderness as documented above Differential includes but is not limited to fracture, dislocation, bruising. Radiographs of the right tib-fib were obtained and independently interpreted by me, no evidence of acute fracture on my assessment. Patient's presentation most consistent with bruising of the anterior tibialis. Patient discharged in stable condition with return precautions and instructions regarding symptomatic care. Procedures Risk/Benefits of Procedure(s) Were Explained: Yes Critical Care Critical Care Time Critical Care Time: No
--- NOTE | 2025-01-29 23:27 | PC.NURSE ---
Pt to XR via wheelchair
[2025-01-29] MEDS: CALCIUM CARBONATE 500MG CHEWTAB 500 MG PO (23:43)
[2025-01-29 23:52] VITALS: BP 134/75; PULSE 94; RESP 14; TEMP 36.7
== END 2025-01-29 23:53 | disposition home or self-care (01) ==
PROVIDERS: Emergency Provider Emergency Medicine; PCP Pediatrics
DX: M79.604 Pain in right leg (principal)
CPT/HCPCS: 73590; 99283

== ENCOUNTER 2025-06-21 13:47 | Emergency (ER) | payer SELFPAY ==
[2025-06-21 13:54] VITALS: BP 138/91; PULSE 102; RESP 16; TEMP 36.9; O2SAT 100; BMI 16.2
--- NOTE | 2025-06-21 13:55 | ED_ITS ---
<Statement entered by Trini Diaz DO - 06/23/25 18:02> I was consulted by the DINA, and we discussed the complexity of problems being addressed. I approve the treatment and management plan for this patient's care in the emergency department, thus performing a substantial portion of the medical decision making. Trini Diaz DO Discharge Plan Disposition Patient Disposition: Home, Self-Care Prescriptions Prescriptions: New doxycycline monohydrate 100 mg capsule 100 mg PO DAILY Qty: 30 0RF No Action buspirone 10 mg tablet 10 mg PO BID Patient Comments: TAKE 1 TABLET BY MOUTH TWICE DAILY levonorgest-eth.estradiol-iron 0.1 mg-0.02 mg (21)/iron (7) tablet 1 tab PO DAILY ondansetron 4 mg tablet,disintegrating 4 mg PO DAILY 3 Days Qty: 3 0RF Referrals Follow up/Referrals: Provider,Referral, MD [Primary Care Provider, Medical] - See instructions Activity Restrictions/Add. Instructions Additional Instructions/Restrictions: Today you were evaluated in the emergency department. I did not find a splinter in your foot. We closed the area with Dermabond. You are given a prescription for doxycycline as it is one of the more cheaper antibiotics that I could find on [facility]. Please tell the pharmacist that you would like to use the GoodRx coupon for doxycycline. Follow-up with your PCP within 48 hours. Return to the ED for any worsening of your condition including signs and symptoms of infection which would be increasing erythema, drainage, pain. Clinical Impressions Clinical Impression: Acute foot pain Instructions Patient Instructions: DI for Foot Pain Print Language Print Language: Cambodian Discharge ED Provider: Trini Diaz General Adult HPI General Chief complaint: Extremity Injury, Lower Stated complaint: Spliter R foot. Pain. Time Seen by Provider: 06/21/25 13:50 History of Present Illness HPI narrative: patient is a 20-year-old female no significant past medical history who presents to the ED for complaints of a splinter in her right foot x 1 week. Patient states she was walking barefoot in her home which has hardwood floors when she obtained a splinter. Related Data Home Medications ?Medication ?Instructions ?Recorded ?Confirmed buspirone 10 mg tablet 10 mg PO BID 06/05/24 levonorgestrel 0.1 mg-ethinyl 1 tab PO DAILY 06/05/24 01/29/25 estradiol 0.02 mg (21)/iron (7) tablet Previous Rx's ?Medication ?Instructions ?Recorded ondansetron 4 mg disintegrating 4 mg PO DAILY 3 days # 3 tabs 01/02/25 tablet doxycycline monohydrate 100 mg 100 mg PO DAILY #30 cap s 06/21/25 capsule Allergies Allergy/AdvReac Type Severity Reaction Status Date / Time No Known Allergies Allergy Verified 01/02/25 12:56 [facility] Disclaimer: The information contained in this section may have been updated after the patient was seen, as this information can be updated by other users. Medical History (Updated 06/21/25 @ 14:17 by Minerva Stallings APRN) Asthma Depression Anxiety Social History (Updated 11/14/23 @ 00:28 by Starr Jorge DO) Smoking Status: Current every day smoker alcohol intake: current alcohol intake frequency: a few times a week current occupational status: employed Travel in the last 8 weeks?: None Have you lived/traveled outside [place] in past 30 days?: No Contact w/someone who lives/traveled outside US past 30 days?: No Exposure to someone with infectious disease in past 14 days?: No Do you have a fever (greater than 100.4 F or 38 C)?: No Have you tested positive for COVID-19?: No Exposed to someone with COVID-19 in past 14 days?: No Do you have a sore throat?: No Do you have a cough?: No Do you have any weakness?: No Do you have any diarrhea?: No Are you experiencing any unusual bleeding?: No Do you have any muscle aches/pain?: No Do you have any abdominal pain?: No Are you experiencing loss of taste or smell?: No ROS Obtained: Yes Systems reviewed as appropriate & no additional complaints except as documented Physical Exam General General appearance: alert and in no apparent distress Head Head exam: atraumatic ENT ENT exam: Present normal exam Neck Neck exam: Present full ROM Respiratory Respiratory exam: Present normal lung sounds bilaterally and respiratory distress Cardiovascular Cardiovascular exam: Present regular rate Abdominal Exam Abdominal exam: Present soft Extremities Exam Extremities exam: Present full ROM Neurological Exam Neurological exam: Present alert and oriented X3 Skin Skin exam: Present dry and other (puncture wound on her right foot plantar aspect, surrounding erythema.) Medical Decision Making Medical Records Screening: Per USPSTF and CDC recommendations, given the prevalence of disease in our region, it is our hospital?s policy to screen for HIV and viral Hepatitis for all patients aged 18 and over and those with ongoing risk factors. Waldemar Inquiry Pt receiving controlled substance: No Vital Signs: 06/21/25 13:54 06/21/25 14:34 Temperature 98.5 F 97.9 F Temperature Source Oral Pulse Rate 94 H Pulse Rate [Right] 102 H Respiratory Rate 16 15 Blood Pressure 125/80 Blood Pressure [Right Arm] 138/91 H Blood Pressure Mean [Right Arm] 106 02 Sat by Pulse Oximetry 100 Oxygen Delivery Method Room Air Room Air Orders (Tests/Meds): ED MEDICATIONS Discontinued Medications Generic Name Dose Route Start Last Admin Trade Name Freq PRN Reason Stop Dose Admin Doxycycline Hyclate 100 mg 06/21/25 14:17 06/21/25 14:20 Doxycycline Hycl 100 Mg Tablet PO 06/21/25 14:18 100 mg ONCE ONE Administration Medical Decision Narrative: In summary, patient is a 20-year-old female no significant past medical history who presents to the ED for complaints of a splinter in her right foot x 1 week. Patient states she was walking barefoot in her home which has hardwood floors when she obtained a splinter. Patient's partner states that he is attempted to move the splinter however is concerned that he is left a piece in there as he feels like something is protruding. They are requesting that I attempt to remove the remaining splinter. On initial evaluation patient is anxious, alert and oriented. She is hemodynamically stable. Physical exam remarkable for a puncture wound on her right foot plantar aspect, surrounding erythema. I do not visualize an obvious foreign body. Procedure performed, patient was prepped with iodine and wound was cleaned with saline. 1% lidocaine used, 0.5mL injected around the area, #11 blade used to make a very small incision, attempted to remove any foreign body with tweezers, no foreign body noted. I closed the area with Dermabond. I had a discussion with patient about the need to wear socks and hard sole shoes. I discussed with her that we will give her 1 dose of oral antibiotics while in the ED and she will need to vegetable picker her prescription for antibiotics. Patient was given a good Rx coupon in the ED as she stated she did not have insurance at this time. Discussed with her she will need to follow back up with PCP. We discussed return precautions to the ED including signs and symptoms of infection. Critical Care Critical Care Time Critical Care Time: No
[2025-06-21] MEDS: DOXYCYCLINE HYCL 100 MG TABLET PO (14:20)
[2025-06-21 14:34] VITALS: BP 125/80; PULSE 94; RESP 15; TEMP 36.6; O2SAT 98
== END 2025-06-21 14:36 | disposition home or self-care (01) ==
PROVIDERS: Emergency Provider Student in an Organized Health Care Education/Training Program
DX: M79.673 Pain in unspecified foot (principal); F17.210 Nicotine dependence, cigarettes, uncomplicated
CPT/HCPCS: 99283

== ENCOUNTER 2025-07-26 23:42 | Emergency (ER) | payer SELFPAY ==
--- NOTE | 2025-07-26 23:50 | HMH.EDGENADL ---
Discharge Plan Disposition Patient Disposition: Home, Self-Care Condition: Good Prescriptions Prescriptions: No Action buspirone 10 mg tablet 10 mg PO BID Patient Comments: TAKE 1 TABLET BY MOUTH TWICE DAILY levonorgest-eth.estradiol-iron 0.1 mg-0.02 mg (21)/iron (7) tablet 1 tab PO DAILY ondansetron 4 mg tablet,disintegrating 4 mg PO DAILY 3 Days Qty: 3 0RF doxycycline monohydrate 100 mg capsule 100 mg PO DAILY Qty: 30 0RF Referrals Follow up/Referrals: Provider,Referral, MD [Primary Care Provider, Medical] - See instructions Activity Restrictions/Add. Instructions Additional Instructions/Restrictions: You are cleared for return to work. Clinical Impressions Clinical Impression: Encounter for medical assessment Stand Alone Forms Stand Alone Forms: Work/School Release Print Language Print Language: Singaporean Discharge ED Provider: Darnell Greenwood General Adult HPI General Chief complaint: Cough Stated complaint: cough, BRANHAM, nausea, vomiting, change in taste Time Seen by Provider: 07/26/25 23:45 History of Present Illness HPI narrative: 20-year-old female with history of asthma presents for medical clearance. She reports that she started feeling bad with upper respiratory symptoms about 8 or 9 days ago and has been feeling better over the last several days. She reports that she was told she has to get a COVID test or a medical clearance before she is allowed to come back to work. She reports that she is essentially asymptomatic now. Related Data Home Medications ?Medication ?Instructions ?Recorded ?Confirmed buspirone 10 mg tablet 10 mg PO BID 06/05/24 01/29/25 levonorgestrel 0.1 mg-ethinyl 1 tab PO DAILY 06/05/24 01/29/25 estradiol 0.02 mg (21)/iron (7) tablet Previous Rx's ?Medication ?Instructions ?Recorded ondansetron 4 mg disintegrating 4 mg PO DAILY 3 days #3 tabs 01/02/25 tablet doxycycline monohydrate 100 mg 100 mg PO DAILY #30 caps 06/21/25 capsule Allergies Allergy/AdvReac Type Severity Reaction Status Date / Time No Known Allergies Allergy Verified 01/02/25 12:56 [facility] Disclaimer: The information contained in this section may have been updated after the patient was seen, as this information can be updated by other users. Medical History (Updated 07/26/25 @ 23:51 by Darnell Greenwood MD) Asthma Depression Anxiety Social History (Updated 11/14/23 @ 00:28 by Starr Jorge DO) Smoking Status: Current every day smoker alcohol intake: current alcohol intake frequency: a few times a week current occupational status: employed Travel in the last 8 weeks?: None Have you lived/traveled outside US in past 30 days?: No Contact w/someone who lives/traveled outside US past 30 days?: No Exposure to someone with infectious disease in past 14 days?: No Do you have a fever (greater than 100.4 F or 38 C)?: No Have you tested positive for COVID-19?: No Exposed to someone with COVID-19 in past 14 days?: Yes Do you have a sore throat?: No Do you have a cough?: No Do you have any weakness?: No Do you have any diarrhea?: No Are you experiencing any unusual bleeding?: No Do you have any muscle aches/pain?: No Do you have any abdominal pain?: No Are you experiencing loss of taste or smell?: Yes ROS Obtained: Yes All systems reviewed & no additional complaints except as documented Physical Exam General General appearance: alert and in no apparent distress Head Head exam: atraumatic and normocephalic Eye Eye exam: Present normal appearance, PERRL and EOMI ENT ENT exam: Present normal oropharynx and normal external ear exam Neck Neck exam: Present normal inspection and full ROM Chest Chest inspection: Present normal inspection and symmetric chest wall rise; Absent tenderness Respiratory Respiratory exam: Present normal lung sounds bilaterally; Absent respiratory distress Cardiovascular Cardiovascular exam: Present regular rate and normal rhythm Abdominal Exam Abdominal exam: Present soft; Absent distention, tenderness or guarding Extremities Exam Extremities exam: Present normal inspection; Absent edema or joint swelling Back Exam Back exam: Present normal inspection; Absent tenderness Neurological Exam Neurological exam: Present alert and oriented X3; Absent motor sensory deficit Psychiatric Psychiatric exam: Present normal affect and normal mood Skin Skin exam: Present warm, dry and normal color Lymphatic Lymphatic Findings: no adenopathy Medical Decision Making Medical Records Medical records reviewed: Yes I reviewed the patient's medical records. Screening: Per USPSTF and CDC recommendations, given the prevalence of disease in our region, it is our hospital?s policy to screen for HIV and viral Hepatitis for all patients aged 18 and over and those with ongoing risk factors. Waldemar Inquiry Pt receiving controlled substance: No Waldemar was queried for this patient: No Vital Signs: 07/26/25 23:51 07/26/25 23:56 Temperature 98.1 F 98.1 F Temperature Source Oral Oral Pulse Rate 103 H Pulse Rate [Left] 103 H Respiratory Rate 16 16 Blood Pressure 145/86 H Blood Pressure [Right Arm] 145/85 H Blood Pressure Mean [Right Arm] 105 Blood Pressure Source Automatic Cuff Blood Pressure Source [Right Arm] Automatic Cuff Blood Pressure Position Sitting 02 Sat by Pulse Oximetry 95 Oxygen Delivery Method Room Air Room Air Lab Data Lab results reviewed: Yes I reviewed the patient's lab results. Medical Decision Narrative: 20-year-old female with history of asthma presents for medical assessment. Has recently gotten over a cold and was told she had to be COVID-negative or cleared by physician to go back to work. History was obtained via interactive discussion with patient. On arrival, patient is [afebrile, hemodynamically stable, satting appropriately, alert, oriented x4, GCS 15], moving all extremities spontaneously. Full physical exam performed and significant for no abnormalities noted. Patient likely had a URI, could be COVID or some other virus. Given she is asymptomatic I do not think there is any indication to perform any diagnostic testing at this time. She was discharged in stable condition. Procedures Risk/Benefits of Procedure(s) Were Explained: Yes Critical Care Critical Care Time Critical Care Time: No
[2025-07-26 23:51] VITALS: BP 145/85; PULSE 103; RESP 16; TEMP 36.7; O2SAT 95; BMI 15.6
[2025-07-26 23:56] VITALS: BP 145/86; PULSE 103; RESP 16; TEMP 36.7; O2SAT 95
== END 2025-07-26 23:56 | disposition home or self-care (01) ==
PROVIDERS: Emergency Provider Emergency Medicine
DX: R51.9 Headache, unspecified (principal); Z02.89 Encounter for other administrative examinations
CPT/HCPCS: 99281; 99282

== ENCOUNTER 2025-10-20 22:22 | Emergency (ER) | payer SELFPAY ==
[2025-10-20 22:28] VITALS: BP 152/74; PULSE 115; RESP 18; TEMP 37.2; O2SAT 97; BMI 16.2
[2025-10-20 22:44] VITALS: PULSE 100; O2SAT 99
--- NOTE | 2025-10-20 22:52 | XR_ITS ---
PROCEDURE INFORMATION: Exam: XR Chest Exam date and time: 10/20/2025 10:55 PM Age: 20 years old Clinical indication: Cough; Additional info: SOB cough TECHNIQUE: Imaging protocol: Radiologic exam of the chest. Views: 1 view. Total images: 1 COMPARISON: CT ABDOMEN PELVIS W CON 01/02/2025 1:38 PM FINDINGS: Lungs: Nonspecific hyperinflation. No consolidation. No pulmonary vascular congestion or edema. Pleural spaces: Unremarkable. No pleural effusion. No pneumothorax. Heart/Mediastinum: Unremarkable. No cardiomegaly. No mediastinal widening or hilar enlargement. Bones/joints: Unremarkable. IMPRESSION: 1. No radiographically acute cardiopulmonary process. 2. Nonspecific hyperinflation
--- NOTE | 2025-10-20 22:53 | ED_ITS ---
Discharge Plan Disposition Patient Disposition: Home, Self-Care Condition: Good Prescriptions Prescriptions: New prednisone 50 mg tablet 50 mg PO DAILY 3 Days Qty: 3 0RF No Action buspirone 10 mg tablet 10 mg PO BID Patient Comments: TAKE 1 TABLET BY MOUTH TWICE DAILY levonorgest-eth.estradiol-iron 0.1 mg-0.02 mg (21)/iron (7) tablet 1 tab PO DAILY ondansetron 4 mg tablet,disintegrating 4 mg PO DAILY 3 Days Qty: 3 0RF doxycycline monohydrate 100 mg capsule 100 mg PO DAILY Qty: 30 0RF Referrals Follow up/Referrals: Provider,Referral, MD [Primary Care Provider, Medical] - See instructions Activity Restrictions/Add. Instructions Additional Instructions/Restrictions: Please follow-up with your primary care provider. Please return to the emergency department if you develop any new or worsening symptoms or become concerned for your health. Clinical Impressions Clinical Impression: Asthma with exacerbation Qualifiers: Asthma severity: mild Stand Alone Forms Stand Alone Forms: Work/School Release Print Language Print Language: Japanese Discharge ED Provider: Darnell Greenwood General Adult HPI <Jayson Rodriguez MD - Last Filed: 10/20/25 22:57> General Chief complaint: Shortness of Breath/Dyspnea Stated complaint: SOA,chest congestion Time Seen by Provider: 10/20/25 22:49 Mode of Arrival: Ambulatory Source of Information: Patient Description of Symptoms (Recalled from ER Triage Doc. by RN): Pt was at work around 1630 when she felt increasingly short of breath. Pt states she took her albuterol inhaler @1730 but it hasnt helped her. Pt states she feels like she cannot get a full breath of air. Pt has a h/o asthma and states this is similar to previous episodes. History of Present Illness HPI narrative: Patient is a 20-year-old female with past medical history of asthma that has recently ran out of her rescue inhaler does not have a PCP presents emergency department for evaluation of cough and shortness of breath. Onset was acute, occurring shortly after she started work tonight. Due to persistent symptoms who presents here for continued evaluation. No stated complaints of chest pain. There is a persistent cough. No other acute complaints at this time. Please note that above description of symptoms, in this electronic medical record under categorization of recalled from ER triage doctor by RN are reflective of an initial nursing assessment, however, is not reflective of my full history and physical exam that was personally taken and clarified. Consequentially, this preceding description of symptoms, which may include the patient's categorized chief complaint in the EMR, do not reflect my personal clinical impression, and the ultimate description of history of present illness and patient stated complaints should be deferred to this section of the note. Unless stated otherwise or congruent with this section of the note, additional signs, symptoms, or incongruence should be interpreted as inaccurate with my clinical impression. Related Data Home Medications ?Medication ?Instructions ?Recorded ?Confirmed buspirone 10 mg tablet 10 mg PO BID 06/05/24 levonorgestrel 0.1 mg-ethinyl 1 tab PO DAILY 06/05/24 01/29/25 estradiol 0.02 mg (21)/iron (7) tablet Previous Rx's ?Medication ?Instructions ?Recorded ondansetron 4 mg disintegrating 4 mg PO DAILY 3 days # 3 tabs 01/02/25 tablet doxycycline monohydrate 100 mg 100 mg PO DAILY #30 cap s 06/21/25 capsule prednisone 50 mg tablet 50 mg PO DAILY 3 days #3 tab s 10/21/25 Allergies Allergy/AdvReac Type Severity Reaction Status Date / Time No Known Allergies Allergy Verified 01/02/25 12:56 COUNTS INCLUDE 234 BEDS AT THE [facility] <Jayson Rodriguez MD - Last Filed: 10/20/25 22:57> COUNTS INCLUDE 234 BEDS AT THE [facility] Disclaimer: The information contained in this section may have been updated after the patient was seen, as this information can be updated by other users. Medical History (Updated 10/21/25 @ 00:06 by Darnell Greenwood MD) Asthma Depression Anxiety Social History (Updated 11/14/23 @ 00:28 by Starr Jorge DO) Smoking Status: Current every day smoker alcohol intake: current alcohol intake frequency: a few times a week current occupational status: employed Travel in the last 8 weeks?: None Have you lived/traveled outside [place] in past 30 days?: No Contact w/someone who lives/traveled outside [place] past 30 days?: No Exposure to someone with infectious disease in past 14 days?: No Do you have a fever (greater than 100.4 F or 38 C)?: No Have you tested positive for COVID-19?: No Exposed to someone with COVID-19 in past 14 days?: No Do you have a sore throat?: No Do you have a cough?: No Do you have any weakness?: No Do you have any diarrhea?: No Are you experiencing any unusual bleeding?: No Do you have any muscle aches/pain?: No Do you have any abdominal pain?: No Are you experiencing loss of taste or smell?: No <Jayson Rodriguez MD - Last Filed: 10/20/25 22:57> ROS Obtained: Yes Systems reviewed as appropriate & no additional complaints e xcept as documented Physical Exam <Jayson Rodriguez MD - Last Filed: 10/20/25 22:57> General General appearance: alert and in no apparent distress Head Head exam: atraumatic and normocephalic Eye Eye exam: Present PERRL and EOMI ENT ENT exam: Present mucous membranes moist Neck Neck exam: Present normal inspection Chest Chest inspection: Present normal inspection and symmetric chest wall rise Respiratory Respiratory exam: Present wheezes (Scant wheezing bilaterally, good air movement); Absent normal lung sounds bilaterally or respiratory distress Cardiovascular Cardiovascular exam: Present normal rhythm and tachycardia Extremities Exam Extremities exam: Present normal inspection Neurological Exam Neurological exam: Present alert Psychiatric Psychiatric exam: Present normal affect Skin Skin exam: Present warm and dry Medical Decision Making <Jayson Rodriguez MD - Last Filed: 10/20/25 22:57> Medical Records Screening: Per USPSTF and CDC recommendations, given the prevalence of disease in our region, it is our hospital?s policy to screen for HIV and viral Hepatitis for all patients aged 18 and over and those with ongoing risk factors. Waldemar Inquiry Pt receiving controlled substance: No Vital Signs: 10/20/25 22:28 10/20/25 22:44 10/20/25 23:01 Temperature 98.9 F Temperature Source Oral Pulse Rate 100 H 91 H Pulse Rate [Right] 115 H Respiratory Rate 18 Blood Pressure 152/96 H Blood Pressure [Right Arm] 152/74 H Blood Pressure Mean [Right Arm] 100 Blood Pressure Source Blood Pressure Source [Right Arm] Automatic Cuff Blood Pressure Position Blood Pressure Position [Right Arm] Sitting 02 Sat by Pulse Oximetry 97 99 98 Oxygen Delivery Method Room Air 10/20/25 23:30 10/21/25 00:07 10/21/25 00:12 Temperature 98.3 F 97.9 F Temperature Source Oral Pulse Rate 73 99 H 88 Pulse Rate [Right] Respiratory Rate 18 16 Blood Pressure 133/72 137/67 128/74 Blood Pressure [Right Arm] Blood Pressure Mean [Right Arm] Blood Pressure Source Automatic Cuff Blood Pressure Source [Right Arm] Blood Pressure Position Supine Blood Pressure Position [Right Arm] 02 Sat by Pulse Oximetry 99 Oxygen Delivery Method Room Air Room Air Lab Data Lab Results 10/20/25 22:54: SARS-CoV-2 (PCR) Not detected, Influenza A Untype (PCR) Not detected, Influenza Type B (PCR) Not detected Orders (Tests/Meds): ED MEDICATIONS Discontinued Medications Generic Name Dose Route Start Last Admin Trade Name Freq PRN Reason Stop Dose Admin Albuterol/Ipratropium 3 ml 10/20/25 22:52 10/20/25 23:18 Ipratropium/Albuterol 3 Ml Neb IH 10/20/25 22:53 3 ml ONCE ONE Administration Dexamethasone 10 mg 10/20/25 22:52 10/20/25 23:04 Dexamethasone 1mg/1ml Intensol 10ml Udc (Er) PO 10/20/25 22:53 10 mg ONCE ONE Administration ORDERS Category Date Time Status CXR --portable [XR chest portable] Stat Exams 10/20/25 22:52 Completed Rapid PCR Covid and Flu A/B Stat Lab 10/20/25 22:54 Completed Medical Decision Narrative: In summary patient is a 20-year-old female with past medical history described above who presents to the emergency department for evaluation of shortness of breath and cough in setting of previous asthma episodes not on long-term control therapy. Patient is hemodynamically stable nontoxic-appearing upon arrival, slight tachycardia, afebrile. Patient has scant wheezing in all lung travis. Initially patient does not want an IV I think this is reasonable we will get a viral swab and a chest x-ray screening for pneumonia underlying lobar pathology as well as an EKG. DuoNeb will be administered as well as dexamethasone. Repeat assessment pending at time of transition of care to the oncoming physician, Dr. Greenwood. <Darnell Greenwood MD - Last Filed: 10/21/25 00:55> Vital Signs: 10/20/25 22:28 10/20/25 22:44 10/20/25 23:01 Temperature 98.9 F Temperature Source Oral Pulse Rate 100 H 91 H Pulse Rate [Right] 115 H Respiratory Rate 18 Blood Pressure 152/96 H Blood Pressure [Right Arm] 152/74 H Blood Pressure Mean [Right Arm] 100 Blood Pressure Source Blood Pressure Source [Right Arm] Automatic Cuff Blood Pressure Position Blood Pressure Position [Right Arm] Sitting 02 Sat by Pulse Oximetry 97 99 98 Oxygen Delivery Method Room Air 10/20/25 23:30 10/21/25 00:07 10/21/25 00:12 Temperature 98.3 F 97.9 F Temperature Source Oral Pulse Rate 73 99 H 88 Pulse Rate [Right] Respiratory Rate 18 16 Blood Pressure 133/72 137/67 128/74 Blood Pressure [Right Arm] Blood Pressure Mean [Right Arm] Blood Pressure Source Automatic Cuff Blood Pressure Source [Right Arm] Blood Pressure Position Supine Blood Pressure Position [Right Arm] 02 Sat by Pulse Oximetry 99 Oxygen Delivery Method Room Air Room Air Lab Data Lab Results 10/20/25 22:54: SARS-CoV-2 (PCR) Not detected, Influenza A Untype (PCR) Not detected, Influenza Type B (PCR) Not detected Orders (Tests/Meds): ED MEDICATIONS Discontinued Medications Generic Name Dose Route Start Last Admin Trade Name Freq PRN Reason Stop Dose Admin Albuterol/Ipratropium 3 ml 10/20/25 22:52 10/20/25 23:18 Ipratropium/Albuterol 3 Ml Neb IH 10/20/25 22:53 3 ml ONCE ONE Administration Dexamethasone 10 mg 10/20/25 22:52 10/20/25 23:04 Dexamethasone 1mg/1ml Intensol 10ml Udc (Er) PO 10/20/25 22:53 10 mg ONCE ONE Administration ORDERS Category Date Time Status CXR --portable [XR chest portable] Stat Exams 10/20/25 22:52 Completed Rapid PCR Covid and Flu A/B Stat Lab 10/20/25 22:54 Completed Medical Decision Narrative: In summary patient is a 20-year-old female with past medical history described above who presents to the emergency department for evaluation of shortness of breath and cough in setting of previous asthma episodes not on long-term control therapy. Patient is hemodynamically stable nontoxic-appearing upon arrival, slight tachycardia, afebrile. Patient has scant wheezing in all lung travis. Initially patient does not want an IV I think this is reasonable we will get a viral swab and a chest x-ray screening for pneumonia underlying lobar pathology as well as an EKG. DuoNeb will be administered as well as dexamethasone. Repeat assessment pending at time of transition of care to the oncoming physician, Dr. Greenwood. Krystyna ALVAREZ: I assumed care of the patient at the time of handoff from the prior provider. On reassessment patient's lungs are completely clear. She reports feeling much better. COVID flu swab is negative, chest x-ray was independently interpreted by me and shows no evidence of pneumonia. These findings were communicated patient she was discharged prescription for prednisone for asthma exacerbation. She was given inhaler prior to discharge. Critical Care <Jayson Rodriguez MD - Last Filed: 10/20/25 22:57> Critical Care Time Critical Care Time: No
[2025-10-20 23:01] VITALS: BP 152/96; PULSE 91; O2SAT 98
--- NOTE | 2025-10-20 23:02 | ECG_ITS ---
APPROVED REPORT Exam: Resting ECG HR:109 bpm ECG Measurements Heart Rate 109 AXES GA 122 P 82 QRSd 78 QRS 89 QT 380 T 66 QTc 444 Conclusion SINUS TACHYCARDIA RIGHT ATRIAL ENLARGEMENT [0.3mV P-WAVE] POSSIBLE RIGHT VENTRICULAR CONDUCTION DELAY [RSR (QR) IN V1/V2] NONSPECIFIC T-WAVE ABNORMALITY ABNORMAL ECG UNCONFIRMED REPORT Electronically signed by : REBEKA COBOS, 10/22/2025 05:00:03
[2025-10-20] MEDS: DEXAMETHASONE 1MG/1ML INTENSOL 10ML UDC (ER) 10 MG PO (23:04)
[2025-10-20 23:07] LABS: Coronavirus 19, PCR Not Detected (NotDetected); Influenza A, PCR Not Detected (NotDetected); Influenza B, PCR Not Detected (NotDetected)
[2025-10-20] MEDS: IPRATROPIUM/ALBUTEROL 3 ML NEB IH (23:18)
[2025-10-20 23:30] VITALS: BP 133/72; PULSE 73; O2SAT 99
[2025-10-21 00:07] VITALS: BP 137/67; PULSE 99; RESP 18; TEMP 36.8; O2SAT 98
[2025-10-21 00:12] VITALS: BP 128/74; PULSE 88; RESP 16; TEMP 36.6; O2SAT 98
== END 2025-10-21 00:13 | disposition home or self-care (01) ==
PROVIDERS: Emergency Medicine; Emergency Provider Emergency Medicine
DX: J45.901 Unspecified asthma with (acute) exacerbation (principal); Z87.891 Personal history of nicotine dependence
CPT/HCPCS: 71045; 87636; 93005; 99284; 99285